=== PATIENT | male | born 1955 ===

== ENCOUNTER 2016-03-21 10:57 | Emergency (ER) | payer OTHER, SELFPAY ==
[~2016-03-21 10:57] MED LIST: Lidocaine 1% 20 ML MDV ONE
[2016-03-21 12:03] LABS: Bilirubin Negative (Negative); Blood, Urine Trace (Negative); Glucose, Urine (Dipstick) Negative (Negative); Leukocyte Small (Negative); Nitrite Negative (Negative); Protein, Urine (Dipstick) Negative (Neg-Trace); Specific Gravity, Urine 1.015 (1.005-1.030); Urobilinogen 0.2 mg/dL (0.2-1.0)
[2016-03-21 12:07] LABS: ALT (SGPT) 29 U/L (0-55); AST (SGOT) 15 U/L (5-34); Albumin 4.5 g/dL (3.4-4.8); Alkaline Phosphatase 48 U/L (40-150); Anion Gap 17 mmol/L (10-20); BUN (Urea Nitrogen) 9 mg/dL (8.4-25.7); Bilirubin, Total 0.9 mg/dL (0.2-1.2); Calc. Creatinine Clearance 0 mL/min (70-130); Calcium 9.5 mg/dL (7.8-10.44); Carbon Dioxide 27 mmol/L (23-31); Chloride 98 mmol/L (98-107); Estimated GFR-MDRD 89; Globulin 3.3 g/dL (2.4-3.5); Glucose 140 mg/dL (80-115); Potassium 4.3 mmol/L (3.5-5.1); Protein, Total 7.8 g/dL (5.8-8.1); Sodium 138 mmol/L (136-145)
--- NOTE | 2016-03-21 12:08 | ULT ---
URINARY BLADDER SONOGRAM: Date: 03/21/16 HISTORY: Painful urination. FINDINGS: Urinary bladder shows no focal abnormalities. Volume is calculated at 198 mL. The prostate gland has a heterogeneous echotexture and measures up to 5.6 cm in width. No free fluid is apparent within th e pelvis. IMPRESSION: No significant abnormalities are demonstrated. POS: [facility]
[2016-03-21 12:16] LABS: Bacteria/HPF 1+ HPF (None Seen); Clarity Hazy (Clear); RBC/HPF 0-3 HPF (0-3); Squamous Epithelial 0-3 HPF (0-3); WBC/HPF 21-50 HPF (0-3)
[2016-03-21 12:24] LABS: Red Blood Cell (RBC) Count 7.94 mill/uL (4.70-6.10); White Blood Cell (WBC) Count 16.8 thou/uL (4.8-10.8)
[2016-03-21] MEDS ORDERED: cefTRIAXone\\ROCEPHIN 1 GM VIAL ONE (12:26)
[2016-03-21 12:29] LABS: Hemoglobin 15.2 g/dL (14.0-18.0)
[2016-03-21 12:30] LABS: Mean Corpuscular Hemoglobin 19.1 pg (27.0-31.0)
[2016-03-21 12:32] LABS: Mean Corpuscular HGB CONC 32.9 g/dL (32.0-36.0); Mean Platelet Volume 11.3 fL (7.4-10.4); Platelet Count 189 thou/uL (130-400); RBC Distribution Width 11.9 % (11.5-14.5)
[2016-03-21 12:33] LABS: #Basophils 0.1 thou/uL (0.0-0.2); #Lymphocytes 0.9 thou/uL (1.20-3.40); #Monocytes 0.9 thou/uL (0.11-0.59); #Neutrophils 6.8 thou/uL (1.40-6.50); %Basophils 1.2 % (0.0-1.0); %Eosinophils 0.3 % (0.0-10.0); %Lymphocytes 9.7 % (21.0-51.0); %Monocytes 10.6 % (0.0-10.0); %Neutrophils 78.2 % (42.0-75.0)
--- NOTE | 2016-03-21 12:38 | ERRECORD ---
[facility] EMERGENCY RECORD HPI URINARY RETENTION (11:25 ABUS) CHIEF COMPLAINT: Patient presents for evaluation of acute urinary retention. HISTORIAN: History provided by patient, 60 yr old M with no apparent PMH who comes in with acute urinary retention since yesterday morning. Denies any hx of STDs, BPH, cancer, or OTC med use. LOCATION: Symptoms are localized, most severe in the suprapubic region. QUALITY: Pain is dull in nature, described as aching, described as bloating sensation. SEVERITY: Currently symptoms are mild. TIME COURSE: Gradual onset of symptoms, 1, days priror to arrival, There has been no change in the patient's symptoms over time, are constant. ASSOCIATED WITH: Associated with abdominal pain, No associated chills, No associated fever, No associated flank pain, No associated nausea, No associated history of urinary retention, No associated recent lagunas, No associated urinary tract infection signs or symptoms, No associated vomiting. EXACERBATED BY: Patient's condition exacerbated by nothing. RELIEVED BY: Patient's condition relieved by nothing. ROS (11:27 ABUS) CONSTITUTIONAL: Negative constitutional review of systems, Historian denies chills, denies fever. ENT: Negative ears, nose, throat review of systems, Historian denies rhinorrhea, denies sore throat. CARDIOVASCULAR: Negative cardiovascular review of systems, Historian denies chest pain, denies palpitations. RESPIRATORY: Negative respiratory review of systems, Historian denies cough, denies shortness of breath. GI: Negative gastrointestinal review of systems, Historian denies abdominal pain, denies constipation, denies diarrhea, denies nausea, denies vomiting. GENITOURINARY MALE: Historian denies hematuria, denies hesitancy, denies incontinence, denies penile discharge, denies urinary frequency, reports urinary retention, denies urinary urgency. MUSCULOSKELETAL: Negative musculoskeletal review of systems, Historian denies back pain, denies fall, denies injury, denies neck pain. SKIN: Negative skin review of systems, Historian denies rash, denies skin changes. NEUROLOGIC: Negative neurologic review of systems, Historian denies headache. PAST MEDICAL HISTORY (11:11 SFRE) MEDICAL HISTORY: No past medical history, Flu vaccine not up to date. MALE SURGICAL HISTORY: Patient has no surgical history. &a-1R&a+25V*p+0X*s0627B*c202B*c15G*c2P*p-0X&a-25V&a+1R Name: Serafin Kirk : 1955 M60 MedRec: [id number] AcctNum: [id number] Prepared: SunMar 21, 2016 13:08 by Interface Page 1 of 3 pMD [facility] EMERGENCY RECORD PSYCHIATRIC HISTORY: No previous psychiatric history. SOCIAL HISTORY: Patient drinks every day, Patient denies drug use, Patient has no smoking history. KNOWN ALLERGIES No Known Drug Allergies CURRENT MEDICATIONS (11:10 SFRE) None VITAL SIGNS (11:06 SFRE) VITAL SIGNS: BP: 148/81, Pulse: 95, Resp: 18, Temp: 99.9 (Tympanic), Pain: 8, O2 sat: 98 on Room Air, Time: 03/21/2016 11:06. PHYSICAL EXAM CONSTITUTIONAL: Vital signs reviewed, Patient afebrile, Pulse normal, Blood pressure normal, Respiratory rate normal, Patient appears non toxic, Patient appears pain free, Patient alert and oriented to person, place and time. (11:27 ABUS) NECK: Neck exam normal, Neck exam included findings of normal range of motion, Trachea midline, no meningeal signs, no cervical adenopathy, no tenderness. (11:27 ABUS) RESPIRATORY CHEST: Respiratory and chest exam normal, Respiratory exam included findings of no respiratory distress, Breath sounds clear. (11:27 ABUS) CARDIOVASCULAR: Cardiovascular assessment normal, Cardiovascular exam included findings of heart rate regular rate and rhythm, Heart sounds normal. (11:27 ABUS) ABDOMEN MALE: Abdominal exam included findings of abdomen nontender, Bowel sounds normal, no distension, no mass, no pulsatile masses, no peritoneal signs, no rigidity, no guarding, no rebound, Rovsing's sign absent. (11:27 ABUS) GENITOURINARY MALE: External genitalia normal, Genitourinary exam included findings of penis normal, Epididymis normal, Testicles normal, no urethral discharge. (11:28 ABUS) BACK: Back exam normal, Back exam included findings of normal inspection, range of motion normal, no tenderness. (11:27 ABUS) LOWER EXTREMITY: Edema present, to bilateral lower extremities, pitting, +1. (11:28 ABUS) NEURO: Neuro exam normal, Neuro exam findings include patient oriented to person, place and time, Speech normal, Gait normal. (11:27 ABUS) SKIN: Skin exam normal, Skin exam included findings of skin warm, dry, and normal in color, no rash. (11:27 ABUS) MEDICATION ADMINISTRATION SUMMARY Drug Name: *cefTRIAXone injection, Dose Ordered: 1 g, Route: Intramuscular, Status: Given, Time: 12:34 03/21/2016, *Additional information available in notes, Detailed record available in &a-1R&a+25V*p+0X*a1864K*c202B*c15G*c2P*p-0X&a-25V&a+1R Name: Serafin Kirk : 1955 M60 MedRec: [id number] AcctNum: [id number] Prepared: carlos Mar 21, 2016 13:08 by Interface Page 2 of 3 pMD [facility] EMERGENCY RECORD Medication Service section. DOCTOR NOTES (11:29 ABUS) TEXT: 60 yr old M with no apparent PMH who comes in with acute urinary retention since yesterday morning. This has never occurred before. EXAM: Suprapubic distension and abdominal pain. DDX: Urinary retention, BPH, Urinary Tract Infection, Pyleonephritis, Nephrolithiasis PLAN: CBC, CMP, UA, Bladder US, Lagunas catch UPDATE: UA shows UTI and bladder scan showed 200 , but lagunas cath placement drained initially 400 cc. Lagunas left in place with plans to have him follow up with urology. A list of urologists was provided to him along with initial dose of antibiotics. Final Dispo: Discharge Home with f/u with urology and return precautions. All results of testing and evaluation were shared with the patient who verbalized understanding and agreement with the plan of care. Level of Complexity / Medical Decision Making: Moderate. PROBLEM LIST No recorded problems DIAGNOSIS (12:26 ABUS) FINAL: PRIMARY: urinary retention, ADDITIONAL: UTI. PRESCRIPTION (12:25 ABUS) Bactrim DS: TABLET : 800 mg-160 mg : ORAL : Quantity: 1 Unit: tab(s) Route: ORAL Schedule: 2 times a day Dispense: 14 Unit: tab(s) May substitute. Refills: No Refills . NOTES: No Refills. DISPOSITION PATIENT: Disposition Type: Discharge, Disposition: *Discharge Home, Condition: Good. (12:26 JANNY) Patient left the department. (13:03 CLEMENTINA) Garber: JANNY=MD Ramandeep, Fabio ANDREAE=GERRI Roberts, Mandi &a-1R&a+25V*p+0X*[id number]*c202B*c15G*c2P*p-0X&a-25V&a+1R Name: Yelena Serafin : 1955 M60 MedRec: [id number] AcctNum: [id number] Prepared: Mauro Mar 21, 2016 13:08 by Interface Page 3 of 3 pMD MTDD
--- NOTE | 2016-03-21 12:43 | PICIS ---
[facility] EMERGENCY RECORD TRIAGE (SunMar 21, 2016 11:10 SFRE) TRIAGE NOTES: UNABLE TO URINATE. PAINFUL WHEN URINATES. (SunMar 21, 2016 11:10 SFRE) PATIENT: NAME: Serafin Kirk, AGE: 60, GENDER: male, : Sun1955, TIME OF GREET: SunMar 21, 2016 10:58, PREFERRED LANGUAGE: Tongan, ETHNICITY: or , ECODE BILLING MAP: [facility], Zip Code: [address], KG WEIGHT: 73.48, PHONE: , , , PERSON ID: [id number], PCP: MD Bautista Olayemi. (SunMar 21, 2016 11:10 SFRE) COMPLAINT: TROUBLE URINATING. (SunMar 21, 2016 11:10 SFRE) ADMISSION: URGENCY: 3 Urgent, ADMISSION SOURCE: Home, TRANSPORT: Walk-in, BED: ED -03. (SunMar 21, 2016 11:10 SFRE) PROVIDERS: TRIAGE NURSE: Mandi Roberts RN. (SunMar 21, 2016 11:10 SFRE) VITAL SIGNS: BP 148/81, Pulse 95, Resp 18, Temp 99.9, (Tympanic), Pain 8, O2 Sat 98, on Room Air, Time 03/21/2016 11:06. (11:06 SFRE) KNOWN ALLERGIES No Known Drug Allergies CURRENT MEDICATIONS (11:10 SFRE) None VITAL SIGNS (11:06 SFRE) VITAL SIGNS: BP: 148/81, Pulse: 95, Resp: 18, Temp: 99.9 (Tympanic), Pain: 8, O2 sat: 98 on Room Air, Time: 03/21/2016 11:06. NURSING ASSESSMENT: GENITOURINARY (11:15 SFRE) CONSTITUTIONAL: Patient arrives ambulatory, Gait steady, History obtained from patient, Patient appears, in distress due to pain, Patient cooperative, Patient alert, Oriented to person, place and time, Skin warm, Skin dry, Skin normal in color, Mucous membranes pink, Mucous membranes moist, Patient is well-groomed, Patient complains of UNABLE TO URINATE. PAIN MALE: aching pain, cramping pain, Onset of pain 03/20/2016, Pain level 8 Hurts Whole Lot, using faces pain scoring., Nothing has been tried to alleviate the pain. GENITOURINARY MALE: Male genitourinary assessment findings include external genitalia normal, Associated with urinary complaints described as, dribbling, retention, urgency. ABDOMEN: Abdomen assessment findings include abdomen symmetrical, Abdomen soft, non-tender, no associated nausea, no associated vomiting, no associated diarrhea, no associated constipation. SAFETY: Side rails up, Cart/Stretcher in lowest position, Call light within reach, Hospital ID band on. NURSING PROCEDURE: NURSE NOTES &a-1R&a+25V*p+0X*a8347N*c202B*c15G*c2P*p-0X&a-25V&a+1R Name: Serafin Kirk : 1955 M60 MedRec: [id number] AcctNum: [id number] Prepared: SunMar 21, 2016 13:13 by Interface Page 1 of 7 pMD [facility] EMERGENCY RECORD NURSES NOTES: Notes: LAB IN TO DRAW BLOOD. (11:41 SFRE) Notes: CLEAR INSTRUCTION ON HOW TO EMPTY COY CATH. (12:49 SFRE) NURSING PROCEDURE: TRANSPORT TO TESTS TRANSPORT TO TESTS: Transport indicated to facilitate diagnosis, Patient transported to ultrasound, via wheelchair, Accompanied by x-ray fresh foods technician. (11:28 SFRE) FOLLOW-UP: After procedure, patient returned to emergency department. (11:41 SFRE) NURSING PROCEDURE: URINE COLLECTION (12:33 SFRE) URINE COLLECTION MALE: Simple coy inserted, using a 16 fr pre-connected catheter, in one attempt, output amount (mL) 350ML, urine yellow in color, and cloudy, Coy has been anchored to leg and labeled with date and time, Leg bag given, Specimen labeled in the presence of the patient and sent to lab, Specimen obtained for culture labeled in the presence of the patient and sent to lab. ORDER DETAILS Order Name: B type Natriuretic Peptide, Status: Active, Time: 11:20 03/21/2016, User: [employer] - Ordered for: MD Sabillon Anthony, - Entered by: MD Sabillon Anthony - carlos Mar 21, 2016 11:20, - Quantity: 1, Order Name: CBC with Differential, Status: Active, Time: 11:20 03/21/2016, User: JANNY, - Ordered for: MD Sabillon Anthony, - Entered by: MD Sabillon Anthony - Tue Mar 21, 2016 11:20, - Quantity: 1, Order Name: Comprehensive Metabolic Panel, Status: Active, Time: 11:20 03/21/2016, User: JANNY, - Ordered for: MD Sabillon Anthony, - Entered by: MD Sabillon Anthony - Tue Mar 21, 2016 11:20, - Quantity: 1, Order Name: COY CATHETER ED, Status: Done, Time: 11:40 03/21/2016, User: CLEMENTINA, - Ordered for: MD Sabillon Anthony, - Entered by: MD Sabillon Anthony - Tue Mar 21, 2016 11:31, - Quantity: 1, Order Name: Urinalysis with Microscopic, Status: Active, Time: 11:21 03/21/2016, User: JANNY, - Ordered for: MD Sabillon Anthony, - Entered by: MD Sabillon Anthony - Tue Mar 21, 2016 11:21, - Quantity: 1, Order Name: US Bladder, Status: Active, Time: 11:22 03/21/2016, User: JANNY, - Ordered for: MD Sabillon Anthony, &a-1R&a+25V*p+0X*l7082H*c202B*c15G*c2P*p-0X&a-25V&a+1R Name: YelenaSerafin rosario : 1955 M60 MedRec: [id number] AcctNum: [id number] Prepared: Mauro Mar 21, 2016 13:13 by Interface Page 2 of 7 pMD [facility] EMERGENCY RECORD - Entered by: MD Sabillon Anthony - Tue Mar 21, 2016 11:22, - Quantity: 1. MEDICATION ADMINISTRATION SUMMARY Drug Name: *cefTRIAXone injection, Dose Ordered: 1 g, Route: Intramuscular, Status: Given, Time: 12:34 03/21/2016, *Additional information available in notes, Detailed record available in Medication Service section. MEDICATION SERVICE (12:34 ABUS) cefTRIAXone injection: Order: cefTRIAXone injection (ceftriaxone sodium) - Dose: 1 g : Intramuscular Schedule: Now Notes: Can mix with lidocaine Ordered by: Fabio Sabillon MD Entered by: Fabio Sabillon MD SunMar 21, 2016 12:21 , Acknowledged by: Mandi Roberts RN SunMar 21, 2016 12:25 Documented as given by: Mandi Roberts RN SunMar 21, 2016 12:34 Patient, Medication, Dose, Route and Time verified prior to administration. IM antibiotic, Amount given: 1G, Medication administered to right hip, Patient appears Awake and alert- acceptable, Correct patient, time, route, dose and medication confirmed prior to administration, Patient advised of actions and side-effects prior to administration, Allergies confirmed and medications reviewed prior to administration, Patient in position of comfort, Side rails up, Cart in lowest position, Family at bedside. HPI URINARY RETENTION (11:25 ABUS) CHIEF COMPLAINT: Patient presents for evaluation of acute urinary retention. HISTORIAN: History provided by patient, 60 yr old M with no apparent PMH who comes in with acute urinary retention since yesterday morning. Denies any hx of STDs, BPH, cancer, or OTC med use. LOCATION: Symptoms are localized, most severe in the suprapubic region. QUALITY: Pain is dull in nature, described as aching, described as bloating sensation. SEVERITY: Currently symptoms are mild. TIME COURSE: Gradual onset of symptoms, 1, days priror to arrival, There has been no change in the patient's symptoms over time, are constant. ASSOCIATED WITH: Associated with abdominal pain, No associated chills, No associated fever, No associated flank pain, No associated nausea, No associated history of urinary retention, No associated recent coy, No associated urinary tract infection signs or symptoms, No associated vomiting. EXACERBATED BY: Patient's condition exacerbated by nothing. RELIEVED BY: Patient's condition relieved by nothing. &a-1R&a+25V*p+0X*y4041O*c202B*c15G*c2P*p-0X&a-25V&a+1R Name: Serafin Kirk : 1955 M60 MedRec: [id number] AcctNum: [id number] Prepared: SunMar 21, 2016 13:13 by Interface Page 3 of 7 pMD [facility] EMERGENCY RECORD ROS (11:27 ABUS) CONSTITUTIONAL: Negative constitutional review of systems, Historian denies chills, denies fever. ENT: Negative ears, nose, throat review of systems, Historian denies rhinorrhea, denies sore throat. CARDIOVASCULAR: Negative cardiovascular review of systems, Historian denies chest pain, denies palpitations. RESPIRATORY: Negative respiratory review of systems, Historian denies cough, denies shortness of breath. GI: Negative gastrointestinal review of systems, Historian denies abdominal pain, denies constipation, denies diarrhea, denies nausea, denies vomiting. GENITOURINARY MALE: Historian denies hematuria, denies hesitancy, denies incontinence, denies penile discharge, denies urinary frequency, reports urinary retention, denies urinary urgency. MUSCULOSKELETAL: Negative musculoskeletal review of systems, Historian denies back pain, denies fall, denies injury, denies neck pain. SKIN: Negative skin review of systems, Historian denies rash, denies skin changes. NEUROLOGIC: Negative neurologic review of systems, Historian denies headache. PAST MEDICAL HISTORY (11:11 SFRE) MEDICAL HISTORY: No past medical history, Flu vaccine not up to date. MALE SURGICAL HISTORY: Patient has no surgical history. PSYCHIATRIC HISTORY: No previous psychiatric history. SOCIAL HISTORY: Patient drinks every day, Patient denies drug use, Patient has no smoking history. PHYSICAL EXAM CONSTITUTIONAL: Vital signs reviewed, Patient afebrile, Pulse normal, Blood pressure normal, Respiratory rate normal, Patient appears non toxic, Patient appears pain free, Patient alert and oriented to person, place and time. (11:27 ABUS) NECK: Neck exam normal, Neck exam included findings of normal range of motion, Trachea midline, no meningeal signs, no cervical adenopathy, no tenderness. (11:27 ABUS) RESPIRATORY CHEST: Respiratory and chest exam normal, Respiratory exam included findings of no respiratory distress, Breath sounds clear. (11:27 ABUS) CARDIOVASCULAR: Cardiovascular assessment normal, Cardiovascular exam included findings of heart rate regular rate and rhythm, Heart sounds normal. (11:27 ABUS) ABDOMEN MALE: Abdominal exam included findings of abdomen nontender, Bowel sounds normal, no distension, no mass, no pulsatile masses, no peritoneal signs, no rigidity, no guarding, no rebound, &a-1R&a+25V*p+0X*j6415Y*c202B*c15G*c2P*p-0X&a-25V&a+1R Name: Serafin Kirk : 1955 M60 MedRec: [id number] AcctNum: [id number] Prepared: Mauro Mar 21, 2016 13:13 by Interface Page 4 of 7 pMD [facility] EMERGENCY RECORD Rovsing's sign absent. (11:27 ABUS) GENITOURINARY MALE: External genitalia normal, Genitourinary exam included findings of penis normal, Epididymis normal, Testicles normal, no urethral discharge. (11:28 ABUS) BACK: Back exam normal, Back exam included findings of normal inspection, range of motion normal, no tenderness. (11:27 ABUS) LOWER EXTREMITY: Edema present, to bilateral lower extremities, pitting, +1. (11:28 ABUS) NEURO: Neuro exam normal, Neuro exam findings include patient oriented to person, place and time, Speech normal, Gait normal. (11:27 ABUS) SKIN: Skin exam normal, Skin exam included findings of skin warm, dry, and normal in color, no rash. (11:27 ABUS) EVENTS TRANSFER: Triage to Emergency Main ED -03. (11:10 SFRE) Removed from Emergency Main ED -03. (13:03 SFRE) DOCTOR NOTES (11:29 ABUS) TEXT: 60 yr old M with no apparent PMH who comes in with acute urinary retention since yesterday morning. This has never occurred before. EXAM: Suprapubic distension and abdominal pain. DDX: Urinary retention, BPH, Urinary Tract Infection, Pyleonephritis, Nephrolithiasis PLAN: CBC, CMP, UA, Bladder US, Coy catch UPDATE: UA shows UTI and bladder scan showed 200 , but coy cath placement drained initially 400 cc. Coy left in place with plans to have him follow up with urology. A list of urologists was provided to him along with initial dose of antibiotics. Final Dispo: Discharge Home with f/u with urology and return precautions. All results of testing and evaluation were shared with the patient who verbalized understanding and agreement with the plan of care. Level of Complexity / Medical Decision Making: Moderate. PROBLEM LIST No recorded problems DIAGNOSIS (12:26 ABUS) FINAL: PRIMARY: urinary retention, ADDITIONAL: UTI. DISPOSITION PATIENT: Disposition Type: Discharge, Disposition: *Discharge Home, Condition: Good. (12:26 ABUS) Patient left the department. (13:03 SFRE) INSTRUCTION (12:27 ABUS) DISCHARGE: URINARY RETENTION, MALE, URINARY TRACT INFECTION &a-1R&a+25V*p+0X*u5107A*c202B*c15G*c2P*p-0X&a-25V&a+1R Name: Serafin Kirk : 1955 M60 MedRec: [id number] AcctNum: [id number] Prepared: SunMar 21, 2016 13:13 by Interface Page 5 of 7 pMD [facility] EMERGENCY RECORD CYSTITIS MALE ADULT, COY CATHETER CARE. FOLLOWUP: MD Michele, Myrtle, [facility], [address] [place] [address], , Follow up with Primary Care Physician in 3-4 days. SPECIAL: As discussed in the ED, please call one of the urologists provided to you to be seen in the next week for urinary retention and need to have coy catheter removed. Please take your antibiotics until then as prescribed. PRESCRIPTION (12:25 ABUS) Bactrim DS: TABLET : 800 mg-160 mg : ORAL : Quantity: 1 Unit: tab(s) Route: ORAL Schedule: 2 times a day Dispense: 14 Unit: tab(s) May substitute. Refills: No Refills . NOTES: No Refills. IMAGING (13:01 SFRE) *DISCHARGE INSTRUCTIONS RECEIPT: Image captured from scanner. *SUPPLY CHARGE SHEET: Image captured from scanner. ADMIN (12:29 ABUS) DIGITAL SIGNATURE: MD Ramandeep, Fabio. RESULTS LABORATORY: Comprehensive Metabolic Panel Collection DT: SunMar 21, 2016 11:48, Sodium 138 mmol/L, Range (136-145), Potassium 4.3 mmol/L, Range (3.5-5.1), Chloride 98 mmol/L, Range (98-107), Carbon Dioxide 27 mmol/L, Range (23-31), Anion Gap 17 mmol/L, Range (10-20), BUN (Urea Nitrogen) 9 mg/dL, Range (8.4-25.7), Creatinine 0.87 mg/dL, Range (0.7-1.3), Estimated GFR-MDRD 89 , Reference Range for Estimated GFR: Greater than 90, mL/min/1.73 m2 NOTE: The MDRD equation has not been validated for use, with the elderly (over 70 years of age), women, patients with, serious comorbid condition or persons with extremes of body size, muscle, mass, or nutritional status. , *Glucose 140 - H mg/dL, Range (80-115), Calcium 9.5 mg/dL, Range (7.8-10.44), Bilirubin, Total 0.9 mg/dL, Range (0.2-1.2), Protein, Total 7.8 g/dL, Range (5.8-8.1), NOTE: Plasma values are generally 0.3 to 0.5 g/dL higher than serum values, due to the presence of fibrinogen. , Albumin 4.5 g/dL, Range (3.4-4.8), Globulin 3.3 g/dL, Range (2.4-3.5), Alb/Glob Ratio 1.4 g/dL, Range (1.2-2.2), &a-1R&a+25V*p+0X*t5119X*c202B*c15G*c2P*p-0X&a-25V&a+1R Name: Serafin Kirk : 1955 M60 MedRec: [id number] AcctNum: [id number] Prepared: SunMar 21, 2016 13:13 by Interface Page 6 of 7 pMD [facility] EMERGENCY RECORD Alkaline Phosphatase 48 U/L, Range (40-150), AST (SGOT) 15 U/L, Range (5-34), ALT (SGPT) 29 U/L, Range (0-55). (12:13 ABUS) Urinalysis with Microscopic Collection DT: SunMar 21, 2016 12:00, Color Yellow , Range (Yellow), Clarity Hazy , Range (Clear), Specific Interior, Urine 1.015 , Range (1.005-1.030), pH, Urine 7.0 , Range (5.0-9.0), *Leukocyte Small - H , Range (Negative), Nitrite Negative , Range (Negative), Protein, Urine (Dipstick) Negative mg/dL, Range (Neg-Trace), Glucose, Urine (Dipstick) Negative mg/dL, Range (Negative), Ketone, Urine Negative mg/dL, Range (Negative), Urobilinogen 0.2 mg/dL, Range (0.2-1.0), Bilirubin Negative , Range (Negative), *Blood, Urine Trace - H , Range (Negative), RBC/HPF 0-3 HPF, Range (0-3), *WBC/HPF 21-50 - H HPF, Range (0-3), Squamous Epithelial 0-3 HPF, Range (0-3), *Bacteria/HPF 1+ - H HPF, Range (None Seen). (12:20 ABUS) CBC with Differential Collection DT: SunMar 21, 2016 11:48, *White Blood Cell (WBC) Count 16.8 - H thou/uL, Range (4.8-10.8), *Red Blood Cell (RBC) Count 7.94 - H mill/uL, Range (4.70-6.10), Hemoglobin 15.2 g/dL, Range (14.0-18.0), Hematocrit 46.0 %, Range (42.0-52.0), *Mean Corpuscular Volume 58.0 - L fL, Range (80.0-94.0), *Mean Corpuscular Hemoglobin 19.1 - L pg, Range (27.0-31.0), Mean Corpuscular HGB CONC 32.9 g/dL, Range (32.0-36.0), RBC Distribution Width 11.9 %, Range (11.5-14.5), Platelet Count 189 thou/uL, Range (130-400), *Mean Platelet Volume 11.3 - H fL, Range (7.4-10.4), *%Neutrophils 78.2 - H %, Range (42.0-75.0), *%Lymphocytes 9.7 - L %, Range (21.0-51.0), *%Monocytes 10.6 - H %, Range (0.0-10.0), %Eosinophils 0.3 %, Range (0.0-10.0), *%Basophils 1.2 - H %, Range (0.0-1.0), *#Neutrophils 6.8 - H thou/uL, Range (1.40-6.50), *#Lymphocytes 0.9 - L thou/uL, Range (1.20-3.40), *#Monocytes 0.9 - H thou/uL, Range (0.11-0.59), #Eosinphils 0.0 thou/uL, Range (0.0-0.7), #Basophils 0.1 thou/uL, Range (0.0-0.2). (12:48 SFRE) B type Natriuretic Peptide Collection DT: SunMar 21, 2016 11:48, B type Natriuretic Peptide 10.2 pg/mL, Range (0-100). (13:03 SFRE) Garber: ABUS=MD Ramandeep, Fabio SFRE=GERRI Roberts, Mandi &a-1R&a+25V*p+0X*x2791S*c202B*c15G*c2P*p-0X&a-25V&a+1R Name: Serafin Kirk : 1955 M60 MedRec: [id number] AcctNum: [id number] Prepared: SunMar 21, 2016 13:13 by Interface Page 7 of 7 pMD MTDD
== END 2016-03-21 13:03 | disposition home or self-care (01) ==
LOC: MADERS 10:57
DX: N39.0 Urinary tract infection, site not specified (principal)
CPT/HCPCS: 36415; 51702; 76856; 80053; 81001; 83880; 85025; 96372; J0696; J2001